=== PATIENT | female | born 1985 | race Caucasian/White ===

== ENCOUNTER 2018-08-29 12:02 | Emergency (ER) | payer SELFPAY ==
[2018-08-29 12:07] VITALS: BP 119/78; PULSE 72; RESP 16; TEMP 36.7; O2SAT 99; BMI 25.0
--- NOTE | 2018-08-29 12:24 | ED.FEMALEGU ---
HPI - Female Genitourinary <CHEPE Rowan - Last Filed: 08/29/18 21:47> General Chief complaint: Urogenital-Female Stated complaint: UTI Time Seen by Provider: 08/29/18 12:24 Source: patient Mode of arrival: ambulatory Limitations: no limitations History of Present Illness HPI Narrative: healthy 32-year-old female that is a nonsmoker here for complaint of having a urinary tract infection symptoms with dysuria and increased urinary frequency over the past week. She reports over the past couple of days she has had flank pain both on the right and the left today she reports she has left flank pain that she reports as being sharp. She states she had a fever 2 days ago. Positive p.o. intake. She denies any dysuria. She denies any vaginal discharge or bleeding. She denies any stressors or relievers of her pain. No nausea vomiting. Last bowel movement was yesterday and was unremarkable. Related Data Previous Rx's Medication Instructions Recorded levofloxacin 750 mg PO DAILY #7 tab 08/29/18 oxycodone-acetaminophen [Percocet] 1 tab PO Q4-6H PRN #6 tab 08/29/18 Allergies Allergy/AdvReac Type Severity Reaction Status Date / Time acetaminophen [From Vicodin] Allergy Intermediate Rash Verified 08/29/18 12:36 hydrocodone [From Vicodin] Allergy Intermediate Rash Verified 08/29/18 12:36 Review of Systems <CHEPE Rowan - Last Filed: 08/29/18 21:47> Constitutional Reports fever(s) Eyes Denies change in vision, Denies eye discharge, Denies irritation and Denies loss of vision ENT Ears, Nose, Mouth, and Throat: Denies change in voice, Denies neck pain and Denies sore throat Cardiovascular Denies chest pain, Denies irregular heart rhythm, Denies lightheadedness, Denies palpitations, Denies dyspnea, Denies dyspnea on exertion and Denies orthopnea Respiratory Denies cough, Denies dyspnea, Denies dyspnea on exertion and Denies wheezing Gastrointestinal Gastrointestinal: Reports abdominal pain Genitourinary Reports dysuria and Denies vaginal discharge Musculoskeletal Denies neck pain Neurologic Denies loss of vision Endocrine Denies palpitations Allergic/Immunologic Denies wheezing Exam <CHEPE Rowan - Last Filed: 08/29/18 21:47> Initial Vital Signs Initial Vital Signs: Vital Signs Temperature 98.1 F 08/29/18 12:07 Pulse Rate 72 08/29/18 12:07 Respiratory Rate 16 08/29/18 12:07 Blood Pressure 119/78 08/29/18 12:07 Pulse Oximetry 99 08/29/18 12:07 Const General: cooperative and well developed Nutritional Appearance: well nourished Orientation: alert, awake, oriented x3 and not confused HENMT Mouth: oral mucosae normal and moist mucous membranes Eyes Conjunctivae: conjunctivae normal Sclera: sclerae normal Pupils: PERRL EOM: EOM intact bilaterally Chest Chest: normal inspection of the chest Resp Effort & Inspection: normal respiratory effort, able to speak in complete sentences, no respiratory distress and no use of accessory muscles Auscultation: clear to auscultation bilaterally, no rales, no rhonchi and no wheezes Cardio Rate: regular rate Rhythm: regular rhythm Heart Sounds: no click, no gallops, no murmurs and no rubs Pulses: normal peripheral pulses GI Inspection: non-distended Palpation: soft, no hepatosplenomegaly, No guarding, No pulsatile mass and tender ( left lateral abdominal pain) Auscultation: normal bowel sounds General: CVA tenderness ( left CVA tenderness) Skin General: no rashes or lesions noted, No jaundice and No petechiae Neuro General: alert, oriented x3, gait normal and no focal motor deficits Speech: speech normal <Avinash Nelson DO - Last Filed: 08/30/18 07:10> Initial Vital Signs Initial Vital Signs: Vital Signs Temperature 98.1 F 08/29/18 12:07 Pulse Rate 72 08/29/18 12:07 Respiratory Rate 16 08/29/18 12:07 Blood Pressure 119/78 08/29/18 12:07 Pulse Oximetry 99 08/29/18 12:07 Course <CHEPE Rowan - Last Filed: 08/29/18 21:47> Orders Ordered: Discontinued Medications Hydromorphone HCl (Dilaudid) 0.5 mg IV NOW ONE Stop: 08/29/18 12:33 Last Admin: 08/29/18 12:54 Dose: 0.5 mg Sodium Chloride (Normal Saline 0.9%) 1,000 mls @ 1,000 mls/hr IV BOLUS ONE Stop: 08/29/18 13:31 Last Infusion: 08/29/18 13:53 Dose: 0 mls/hr Admin: 08/29/18 12:55 Dose: 1,000 mls/hr Ceftriaxone Sodium/Dextrose (Rocephin) 1 gm in 50 mls @ 100 mls/hr IV NOW ONE Stop: 08/29/18 15:05 Last Infusion: 08/29/18 15:31 Dose: 0 mls/hr Admin: 08/29/18 14:39 Dose: 100 mls/hr Ondansetron HCl (Zofran) 4 mg IV NOW ONE Stop: 08/29/18 12:33 Last Admin: 08/29/18 12:55 Dose: 4 mg Vital Signs - 8 hr 08/29/18 15:31 Pulse Rate 70 Respiratory Rate 13 Blood Pressure 106/60 Pulse Oximetry 99 <Avinash Nelson DO - Last Filed: 08/30/18 07:10> Orders Ordered: Discontinued Medications Hydromorphone HCl (Dilaudid) 0.5 mg IV NOW ONE Stop: 08/29/18 12:33 Last Admin: 08/29/18 12:54 Dose: 0.5 mg Sodium Chloride (Normal Saline 0.9%) 1,000 mls @ 1,000 mls/hr IV BOLUS ONE Stop: 08/29/18 13:31 Last Infusion: 08/29/18 13:53 Dose: 0 mls/hr Admin: 08/29/18 12:55 Dose: 1,000 mls/hr Ceftriaxone Sodium/Dextrose (Rocephin) 1 gm in 50 mls @ 100 mls/hr IV NOW ONE Stop: 08/29/18 15:05 Last Infusion: 08/29/18 15:31 Dose: 0 mls/hr Admin: 08/29/18 14:39 Dose: 100 mls/hr Ondansetron HCl (Zofran) 4 mg IV NOW ONE Stop: 08/29/18 12:33 Last Admin: 08/29/18 12:55 Dose: 4 mg Vital Signs - 8 hr 08/29/18 15:31 Pulse Rate 70 Respiratory Rate 13 Blood Pressure 106/60 Pulse Oximetry 99 MDM - Female Genitourinary <CHEPE Rowan - Last Filed: 08/29/18 21:47> Lab Data Result diagrams: 08/29/18 13:00 08/29/18 13:00 Lab Results 08/29/18 08/29/18 08/29/18 Range/Units 12:32 13:00 13:00 WBC 9.1 (4.5-11.0) X10^3/uL RBC 4.09 (4.0-5.2) X10^6/uL Hgb 12.4 (12.0-16.0) g/dL Hct 36.0 (36-46) % MCV 88.0 (80-100) fL MCH 30.4 (26-34) PG MCHC 34.5 (30-36) % RDW 13.3 (11.6-14.8) % Plt Count 238 (150-400) X10^3/uL Neut % (Auto) 86.1 H (50-75) % Lymph % (Auto) 7.5 L (25-40) % [place] % (Auto) 6.0 (3-14) % Eos % (Auto) 0.1 L (2-4) % Baso % (Auto) 0.3 (0-2) % Neut # (Auto) 7900 H (1728-9926) /uL Sodium 142 (137-145) mmol/L Potassium 3.9 (3.4-5.1) mmol/L Chloride 105 (98-107) mmol/L Carbon Dioxide 23 (22-32) mmol/L BUN 10 (7-17) mg/dL Creatinine 0.80 (0.52-1.04) mg/dL Estimated GFR > 60.0 (>60) mL/min BUN/Creatinine Ratio 12.5 (6-22) Glucose 88 (70-100) mg/dL Calcium 9.0 (8.4-10.2) mg/dL Total Bilirubin 0.5 (0.2-1.3) mg/dL AST 21 (14-36) IU/L ALT 28 (9-52) IU/L Alkaline Phosphatase 51 (38-126) U/L Total Protein 7.5 (6.3-8.2) g/dL Albumin 4.5 (3.5-5.0) g/dL Globulin 3.0 (1.7-4.1) g/dL Albumin/Globulin Ratio 1.5 (1.0-2.8) Lipase 33 (23-300) U/L Urine RBC 30-100/hpf H (0-5/HPF) Urine WBC 30-100/hpf H (0-5/HPF) Ur Squamous Epith Cells 10-30 /hpf H Urine Bacteria None seen (None) Ur Culture Indicated? Cult not indicated Micro UA Comment Not Reportable Point of Care Testing Test Results Negative Urine Dip Bedside Urine Glucose Negative Bedside Urine Bilirubin - Negative Bedside Urine Ketone + 15 Urine Specific [place] 1.020 Bedside Urine Occult Blood +++ Bedside Urine pH 6.0 Bedside Urine Protein + 30 Bedside Urine Urobilinogen - Negative Bedside Urine Nitrite + Positive Bedside Urine Leukocytes +++ [address] scan - abdomen: Radiologist's impression: [address] [address] [address] Scan Report Signed Patient: Yael Real#: [id number] : 1985Acct:[id number] Age/Sex: 32 / FDate of Service: 08/29/18 Loc: ED Accession Number: [id number] Procedure: CT abdomen pelvis w con Ordering Provider: Julio Londono PROCEDURE: CT ABDOMEN PELVIS W CON INDICATIONS: left flank and left abdomen pain TECHNIQUE: After the administration of intravenous contrast, 5 mm thick sections acquired from the diaphragm to the symphysis. 5 mm coronal and sagittal reformats were acquired. For radiation dose reduction, the following was used: automated exposure control, adjustment of mA and/or kV according to patient size. COMPARISON: None. FINDINGS: Image quality: Excellent. ABDOMEN: Lung bases: Lung bases are clear. Heart size is normal. Solid organs: Liver is normal in size and enhancement. Gallbladder is unremarkable. Biliary system is non dilated. Pancreas enhances normally. Spleen is normal in size and enhancement. No adrenal nodules. Kidneys demonstrate normal size and enhancement, without hydronephrosis. Peritoneum and bowel: Bowel loops demonstrate normal wall thickness and caliber. No free air. Trace dependent pelvic fluid, likely physiologic Nodes and vessels: No retroperitoneal or mesenteric adenopathy by size criteria. Aorta and inferior vena cava are normal in size. Miscellaneous: No ventral hernias. PELVIS: Genitourinary: Bladder wall thickness is normal. There is an irregular enhancing low attenuation focus within the right ovary measuring 19 mm. Miscellaneous: No inguinal hernias or adenopathy. Bones: No suspicious bony lesions. No vertebral body compression fractures. IMPRESSION: 1. Enhancing right ovarian focus likely involuting hemorrhagic cyst. Dictated by: Norma Hughes M.D. on 08/29/2018 at 14:12 Approved by: Norma Hughes M.D. on 08/29/2018 at 14:16 [facility] Narrative Medical decision making narrative: CBC was obtained and was negative for any acute findings. Chemistry panel was obtained was negative for any acute findings. Urinalysis indicates urinary tract infection. CT of the abdomen was obtained and it does shows findings consistent with right ovarian hemorrhagic cyst. No kidney stones were seen. No other acute findings were seen on the CT. Signs and symptoms presents as urinary tract infection with pyelonephritis. she was given Rocephin in the emergency room. She is placed on Levaquin p.o.. Follow up with primary care provider the next couple days for further evaluation of pyelonephritis and also for ovarian cyst. Mwej-vic-eoedbdg Tylenol or Motrin as needed for discomfort. Small amount of Percocet as prescribed for breakthrough pain. Plenty of fluids. For any worsening symptoms return to the emergency room. <Avinash Nelson DO - Last Filed: 08/30/18 07:10> Lab Data Lab Results 08/29/18 08/29/18 08/29/18 Range/Units 12:32 13:00 13:00 WBC 9.1 (4.5-11.0) X10^3/uL RBC 4.09 (4.0-5.2) X10^6/uL Hgb 12.4 (12.0-16.0) g/dL Hct 36.0 (36-46) % MCV 88.0 (80-100) fL MCH 30.4 (26-34) PG MCHC 34.5 (30-36) % RDW 13.3 (11.6-14.8) % Plt Count 238 (150-400) X10^3/uL Neut % (Auto) 86.1 H (50-75) % Lymph % (Auto) 7.5 L (25-40) % [place] % (Auto) 6.0 (3-14) % Eos % (Auto) 0.1 L (2-4) % Baso % (Auto) 0.3 (0-2) % Neut # (Auto) 7900 H (1757-2966) /uL Sodium 142 (137-145) mmol/L Potassium 3.9 (3.4-5.1) mmol/L Chloride 105 (98-107) mmol/L Carbon Dioxide 23 (22-32) mmol/L BUN 10 (7-17) mg/dL Creatinine 0.80 (0.52-1.04) mg/dL Estimated GFR > 60.0 (>60) mL/min BUN/Creatinine Ratio 12.5 (6-22) Glucose 88 (70-100) mg/dL Calcium 9.0 (8.4-10.2) mg/dL Total Bilirubin 0.5 (0.2-1.3) mg/dL AST 21 (14-36) IU/L ALT 28 (9-52) IU/L Alkaline Phosphatase 51 (38-126) U/L Total Protein 7.5 (6.3-8.2) g/dL Albumin 4.5 (3.5-5.0) g/dL Globulin 3.0 (1.7-4.1) g/dL Albumin/Globulin Ratio 1.5 (1.0-2.8) Lipase 33 (23-300) U/L Urine RBC 30-100/hpf H (0-5/HPF) Urine WBC 30-100/hpf H (0-5/HPF) Ur Squamous Epith Cells 10-30 /hpf H Urine Bacteria None seen (None) Ur Culture Indicated? Cult not indicated Micro UA Comment Not Reportable Point of Care Testing Test Results Negative Urine Dip Bedside Urine Glucose Negative Bedside Urine Bilirubin - Negative Bedside Urine Ketone + 15 Urine Specific [place] 1.020 Bedside Urine Occult Blood +++ Bedside Urine pH 6.0 Bedside Urine Protein + 30 Bedside Urine Urobilinogen - Negative Bedside Urine Nitrite + Positive Bedside Urine Leukocytes +++ 500 Esterase Discharge Plan Departure Patient Disposition: Home Clinical Impression: Ovarian cyst, Pyelonephritis Discharge Date/Time: 08/29/18 15:32 Interventions: ED Discharge Assessment Last Done: 08/29/18 15:31 Instructions: DI for Kidney Infection, DI for Ovarian Cyst Activity Restrictions/Additional Instructions: laboratory results indicate urinary tract infection and with starting flank pain presents as starting kidney infection. CT the abdomen shows a right ovarian cyst that is also most likely adding discomfort. UR placed on antibiotics use as directed. Use [id number] Tylenol or Motrin as needed for any discomfort. Follow up with primary care provider in the next day or 2 for re-evaluation. Plenty of fluids. Small amount of Percocet as prescribed for breakthrough cyst not covered by Tylenol or Motrin. For any worsening symptoms return to the emergency room. Prescriptions: New levofloxacin 750 mg tablet 750 mg PO DAILY Qty: 7 RF: 0 oxycodone-acetaminophen [Percocet] 5-325 mg tablet 1 tab PO Q4-6H PRN (Reason: pain) Qty: 6 RF: 0 <Avinash Nelson DO - Last Filed: 08/30/18 07:10> Cosign ED Attending Miguel Attestation: I was available for consultation during this patient's emergency department encounter
[2018-08-29 12:34] LABS: Bacteria Urine None Seen
[2018-08-29 12:48] LABS: Culture Indicated Urine Cult Not Indicated; RBC Urine 30-100/HPF (0-5/HPF); Squamous Epithelial Cell Urine 10-30 /HPF; WBC Urine 30-100/HPF (0-5/HPF)
[2018-08-29] MEDS: HYDROMORPHONE 1 MG INJ 0.5 MG IV (12:54)
[2018-08-29] MEDS: ONDANSETRON 4 MG/2 ML INJ IV (12:55)
[2018-08-29] MEDS: SODIUM CHLORIDE 0.9% 1,000 ML 1000 ML IV (12:55)
[2018-08-29 13:19] LABS: Add Manual Diff / Slide Review NO; Basophils Percent Auto 0.3 % (0-2); Eosinophils Percent Auto 0.1 % (2-4); Hemoglobin 12.4 g/dL (12.0-16.0); Lymphocytes Percent Auto 7.5 % (25-40); Mean Corpuscular HGB Conc 34.5 % (30-36); Mean Corpuscular Hemoglobin 30.4 PG (26-34); Neutrophils Absolute Auto 7900 /uL (3000-5900); Neutrophils Percent Auto 86.1 % (50-75); Platelet Count 238 X10^3/uL (150-400); Red Blood Cell Count 4.09 X10^6/uL (4.0-5.2); Red Cell Distribution Width 13.3 % (11.6-14.8); White Blood Cell Count 9.1 X10^3/uL (4.5-11.0)
--- NOTE | 2018-08-29 13:27 | DI.CT.S_ITS ---
PROCEDURE: CT ABDOMEN PELVIS W CON INDICATIONS: left flank and left abdomen pain TECHNIQUE: After the administration of intravenous contrast, 5 mm thick sections acquired from the diaphragm to the symphysis. 5 mm coronal and sagittal reformats were acquired. For radiation dose reduction, the following was used: automated exposure control, adjustment of mA and/or kV according to patient size. COMPARISON: None. FINDINGS: Image quality: Excellent. ABDOMEN: Lung bases: Lung bases are clear. Heart size is normal. Solid organs: Liver is normal in size and enhancement. Gallbladder is unremarkable. Biliary system is non dilated. Pancreas enhances normally. Spleen is normal in size and enhancement. No adrenal nodules. Kidneys demonstrate normal size and enhancement, without hydronephrosis. Peritoneum and bowel: Bowel loops demonstrate normal wall thickness and caliber. No free air. Trace dependent pelvic fluid, likely physiologic Nodes and vessels: No retroperitoneal or mesenteric adenopathy by size criteria. Aorta and inferior vena cava are normal in size. Miscellaneous: No ventral hernias. PELVIS: Genitourinary: Bladder wall thickness is normal. There is an irregular enhancing low attenuation focus within the right ovary measuring 19 mm. Miscellaneous: No inguinal hernias or adenopathy. Bones: No suspicious bony lesions. No vertebral body compression fractures. IMPRESSION: 1. Enhancing right ovarian focus likely involuting hemorrhagic cyst. Dictated by: Norma Hughes M.D. on 08/29/2018 at 14:12 Approved by: Norma Hughes M.D. on 08/29/2018 at 14:16
[2018-08-29 13:38] LABS: Alanine Aminotransferase 28 IU/L (9-52); Albumin 4.5 g/dL (3.5-5.0); Albumin Globulin Ratio 1.5 (1.0-2.8); Alkaline Phosphatase 51 U/L (38-126); Aspartate Aminotransferase 21 IU/L (14-36); BUN Creatinine Ratio 12.5 (6-22); Bilirubin Total 0.5 mg/dL (0.2-1.3); Blood Urea Nitrogen 10 mg/dL (7-17); Carbon Dioxide 23 mmol/L (22-32); Chloride 105 mmol/L (98-107); Estimated Glomerular Filt Rate > 60.0 mL/min (>60); Glucose 88 mg/dL (70-100); HEMOLYSIS < 15 (0-50); Lipase 33 U/L (23-300); Potassium 3.9 mmol/L (3.4-5.1); Sodium 142 mmol/L (137-145); Total Protein 7.5 g/dL (6.3-8.2)
[2018-08-29] MEDS: CEFTRIAXONE 1 GM/50 ML FROZ.PIGGY IV (14:39)
[2018-08-29 15:31] VITALS: BP 106/60; PULSE 70; RESP 13; O2SAT 99
== END 2018-08-29 15:32 | disposition home or self-care (01) ==
PROVIDERS: Emergency Medicine; Emergency Provider Nurse Practitioner Family
DX: N83.201 Unspecified ovarian cyst, right side (principal); N12 Tubulo-interstitial nephritis, not specified as acute or chronic
CPT/HCPCS: 36591; 74177; 80053; 81003; 81015; 81025; 83690; 85025; 96361; 96365; 96375; 99283; 99285; J1170; J2405; Q9967

== ENCOUNTER → 2020-03-13 12:16 | Outpatient (ROUT) | payer OTHER, MEDICAID, SELFPAY | PROVIDERS: Visit Provider Nurse Practitioner Obstetrics & Gynecology | DX: Z34.90 Encounter for supervision of normal pregnancy, unspecified, unspecified trimester (principal); Z36.85 Encounter for antenatal screening for Streptococcus B; Z3A.36 36 weeks gestation of pregnancy | CPT/HCPCS: 87081 ==

== ENCOUNTER → 2020-03-30 10:00 | Outpatient (CLI) | payer OTHER, MEDICAID, SELFPAY ==
[2020-03-31 23:19] LABS: COVID19 Sendout Not Detected (Not Detect)
== END ==
PROVIDERS: Visit Provider Physician Assistant
DX: Z01.818 Encounter for other preprocedural examination (principal)
CPT/HCPCS: 87635

== ENCOUNTER 2020-04-01 07:24 | Inpatient (IN) | payer OTHER, MEDICAID, SELFPAY ==
--- NOTE | 2020-04-01 07:34 | P.HPOB_ITS ---
OB HPI Date/Time Date of admission: 04/01/20 Date Patient Seen: 04/01/20 Time Patient Seen: 07:30 History of Present Condition Chief complaint: OBSERVATION : 6 Para: 3 Estimated Date of Delivery: 04/08/20 Estimated Gestational Age (weeks): 39 Narrative: Lori Real is a 34 year old female @39 weeks based on 7wk US, presenting for elective IOL. Has a hx of rapid labors, [place] [id number], lives remotely from hospital. Uncomplicated PN care w/ CNM. Desires low intervention . FOB present and supportive. Indications Indication for induction OB: maternal distance History of Present care: good care Dating criteria: based on 1st trimester US only Ultrasounds: normal mid trimester US Obstetrical complications: other (anemia) Preadmission Labs Blood type: O (+) positive -: Antibody screen: negative, Cystic fibrosis screen: negative, GBS status: n egative, HBsAG: negative, HIV: negative and RPR/VDLR: negative -: Chlamydia screen: not detected and Gonorrhea screen: not detected -: Rubella: immune HCT: 31.3 HCAB: negative PAP: Normal Quad screen: Normal 1 hr GTT: 108 3 hr GTT: 2 hr (118) Fasting blood glucose: 82 Narrative: 2hr gtt-WNL Prior (ies) History: G1-SAB@6wks G2-NSVB@38wks, 4hr, 7#6oz, male G3-SAB@6wks G4-NSVB@38wks, 5hr, 5#6oz, male G5-NSVB@41wks, 6hrs, 6#50z, male Evaluation Evaluation Baseline heart rate: 135 Variability: Moderate (11-25) monitor accelerations: Present monitor decelerations: Absent Contraction Frequency (minutes): 0 Category of Tracing: I Cervical dilation (cm): 4 Cervical effacement (%): 70 station: -2 [facility] Surgical History (Updated 04/01/20 @ 07:51 by Robina Segura CNM) S/P tendon repair (Acute) Social History Smoking Status: Former smoker Meds Home Medications and Allergies Home Medications Medication Instructions Recorded Confirmed Type azithromycin 250 mg tablet See Rx Instructions PO .COMPLEX #6 08/02/19 04/01/20 Rx tab Allergies Allergy/AdvReac Type Severity Reaction Status Date / Time acetaminophen [From Vicodin] Allergy Intermediate Rash Verified 08/02/19 11:34 hydrocodone [From Vicodin] Allergy Intermediate Rash Verified 08/02/19 11:34 Review of Systems Review of Systems ROS: Yes All systems reviewed with the patient and are negative except as otherwise documented Exam Vital Signs (past 8 hours): BP-111/64, HR-75bpm, T-36.3C Temporal Objective Labs Result Diagrams: 04/01/20 08:00 Assessment and Plan Assessment and Plan Assessment and Plan narrative: Admit, routine orders. Pitocin per protocol, then AROM once contractions are regular. Labor suppoert PRN. Reassess in 4-6 hours or sooner, PRN. notified of patient admit status and POC. Time Spent with Patient Total time spent with greater than 50% in coordination of care (as documented) at patient's floor/unit and/or counseling patient:: 15-24 minutes
[2020-04-01 08:16] LABS: Add Manual Diff / Slide Review NO; Basophils Absolute Auto 0 /uL (0-100); Basophils Percent Auto 0.3 % (0-2); Eosinophils Absolute Auto 100 /uL (0-450); Eosinophils Percent Auto 0.8 % (2-4); Hematocrit 31.1 % (36-46); Hemoglobin 10.8 g/dL (12.0-16.0); Lymphocytes Absolute Auto 1300 /uL (1100-4500); Lymphocytes Percent Auto 17.9 % (25-40); Mean Corpuscular HGB Conc 34.6 % (30-36); Mean Corpuscular Hemoglobin 29.8 PG (26-34); Monocytes Absolute Auto 600 /uL (0-900); Monocytes Percent Auto 7.7 % (3-14); Neutrophils Absolute Auto 5500 /uL (1500-7000); Neutrophils Percent Auto 73.3 % (50-75); Platelet Count 217 X10^3/uL (150-400); Red Blood Cell Count 3.61 X10^6/uL (4.0-5.2); Red Cell Distribution Width 16.9 % (11.6-14.8); White Blood Cell Count 7.5 X10^3/uL (4.5-11.0)
[2020-04-01] MEDS: OXYTOCIN PREMIX 30 UNIT/500 ML PLAST..BAG IV (08:22)
[2020-04-01] MEDS: LACTATED RINGERS 1,000 ML 100 ML IV ×2 (08:22→16:18)
[2020-04-01 08:50] VITALS: BP 111/64
--- NOTE | 2020-04-01 13:19 | PM.OBPNLAB ---
Date/Time Date Patient Seen: 04/01/20 Time Patient Seen: 13:00 Pain Control Pain control: tolerating well Comments: Patient denies pain Pelvic Exam Dilation (cm): 4 Effacement (%): 70 station: -2 Amniotic membrane status: Intact Contractions Date/Time contractions began: 0800 Monitor mode: External Pitocin rate (mU/min): 15 Contraction frequency (min): 3 Contraction duration (min): 1 Contraction pattern: Regular Contraction phase: Resting Contraction intensity: Mild Status status: Category l Heart Rate Baseline: 135 Monitor Accelerations: Present Monitor Decelerations: Absent Monitor Variability: Moderate Assessment and Plan Assessment: induction ongoing Plan: continuous present management Comments: Counseled patient on minimal cervical change, expected w/ mild uterine contractions. Offered AROM for labor augmentation, patient declines. Continue pitocin titration to adequate ctx pattern. RN to notify CNM @ 30mu/min. Encourage frequent position changes (Q30 minutes). Reassess in 4 hours or sooner, PRN.
--- NOTE | 2020-04-01 15:28 | P.PCNOB_ITS ---
Events: Labor Induction Labor & Delivery Delivery date: 04/01/20 Intrapartal events: Precipitous Labor < 3 hours Cervical ripening method: none Induction method: per pitocin protocol Delivery monitor: external FHT and external uterine Route of delivery: L&D Laceration Description: None Estimated blood loss (mL): 600 Anesthesia type: None Narrative: CNM called to room for patient report of sudden onset strong contractions w/ SROM upon waking from nap. Pitocin was stopped prior to my arrival. Fluid clear. Labor support and coaching provided, followed by spontaneous urge to push and patient was presumed to be complete at that time. NSVB of a vigorous baby boy in KENNETH position was sommersaulted through a single tight NC w/ easy delivery fo the shoulders. Collins lifted to maternal abdomen for drying and skin to skin. Pitocin was opened to 900mL/hr for brisk bleeding prior to placental detachment. After 2 minutes, the cord was double clamped by CNM and cut by FOB. Hospital cord blood sample was collected. Gentle cord traction and single maternal push led to spontaneous, Schultze delivery of an apparently intact placenta, membranes and 3VC. Fundus immediately firm and bleeding minimal. Vagina and perineum inspected and intact. QBL 600mL. Both mother and baby stable and skin to skin as I left the room. Collins Baby 1: gender: Male Presentation: vertex position: Right Occiput Anterior cord vessel description: Nuchal Cord score (1 min): 8 score (5 min): 10 Plan for aftercare: Routine PP orders. Anticipate d/c to home tomorrow.
[2020-04-01] MEDS: OXYTOCIN 10 UNIT/ML VIAL 20 UNIT (16:19)
[2020-04-01] MEDS: KETOROLAC 30 MG/ML VIAL IV ×2 (16:23→22:12)
[2020-04-01 22:12] VITALS: TEMP 36.9
--- NOTE | 2020-04-02 08:56 | P.DS_ITS ---
Discharge Providers Provider Date of admission: 04/01/20 07:24 Discharge Date: 04/02/20 Primary care physician: Imelda Consults: 04/02/20 15:24 Consult to Warehouse Stock Clerk Routine Comment: Discharge provider: Robina Segura CNM Summary Hospital Course Date Patient Seen: 04/02/20 Time Patient Seen: 09:00 Procedures: Patient sitting up in bed, holding her son, eager for d/c to home. breastfed well all night long. Voiding and ambulating independently. Minimal VB, no clots. Denies pain. Tolerating general diet. FOB present and supportive overnight. Peripartum Data Infant Delivery Method: Natural Vaginal Laceration description: None complications: none Sidney 1: Gender: Male Disposition of : home Discharge Diagnosis (1) Encounter for full-term uncomplicated delivery: Status: Acute Problem Details: Routine course Status at Discharge Cognitive/behavioral status at discharge: oriented Functional status at discharge: independent ambulation Overall status at discharge: patient is progressing back to baseline Time Spent with Patient Time attestation: Total time spent providing and/or coordinating discharge services: Objective Labs Result Diagrams: 04/01/20 08:00 Labs: Laboratory Results - last 24 hr 04/01/20 08:00 Blood Type O Positive Antibody Screen Negative Exam Vital Signs (past 8 hours): BP 113/76, HR83, RR18, T98.1F Temporal Bimanual Exam- Vagina & Uterus: uterus non-tender and uterus enlarged (U-1, appropriate for ) Other: Vaginal bleeding minimal, no clots. Perineum intact. Discharge Plan Discharge Plan Patient Disposition: Home Discharge orders & Medications Prescriptions: New acetaminophen 325 mg Tablet 650 mg PO Q6HR PRN (Reason: Pain, Mild (1-3)) 14 Days Qty: 60 RF: 3 ibuprofen 600 mg Tablet 600 mg PO Q6HR PRN (Reason: Pain, Mild (1-3)) 14 Days Qty: 60 RF: 3 Discontinued azithromycin 250 mg tablet See Rx Instructions PO .COMPLEX Qty: 6 RF: 0 Diet/Activity/Treatments Diet: Diet as Tolerated and Regular Activity: pelvic rest x 6 weeks Skin/Wound/Dressing Care Report to your healthcare provider any signs of infection, such as:: chills, f ever, increased pain, unusual drainage and unusual redness Visit Report/Discharge Packet Instructions: DI for Depression
[2020-04-02 09:13] VITALS: BP 113/76; PULSE 83; RESP 18; TEMP 36.7
== END 2020-04-02 10:41 | disposition home or self-care (01) | DRG 560 ==
PROVIDERS: Admitting Provider Nurse Practitioner Obstetrics & Gynecology; Referring Provider Nurse Practitioner Obstetrics & Gynecology; Visit Provider Nurse Practitioner Obstetrics & Gynecology
DX: O69.1XX0 Labor and delivery complicated by cord around neck, with compression, not applicable or unspecified (principal); Z3A.39 39 weeks gestation of pregnancy; Z37.0 Single live birth; O62.3 Precipitate labor; Z01.818 Encounter for other preprocedural examination
CPT/HCPCS: 36415; 59050; 85025; 86850; 86900; 86901; 87635; G0379; J1885; J2590

== ENCOUNTER → 2021-04-07 13:42 | Outpatient (CLI) | payer OTHER, MEDICAID, SELFPAY ==
[2021-04-07 21:36] LABS: COVID19 - ORCAS (NP or Nasal) Negative (Negative)
== END ==
PROVIDERS: PCP Family Medicine; Visit Provider Family Medicine
DX: Z20.822 Contact with and (suspected) exposure to COVID-19 (principal)
CPT/HCPCS: U0003

== ENCOUNTER → 2021-08-11 11:16 | Outpatient (CLI) | payer OTHER, MEDICAID, SELFPAY ==
[2021-08-11 19:09] LABS: Appearance Urine UA CLEAR; Bilirubin Urine UA NEGATIVE (NEGATIVE); Color Urine UA YELLOW; Glucose Urine UA NEGATIVE (Negative); Ketones Urine UA NEGATIVE (NEGATIVE); Leukocyte Esterase Urine UA NEGATIVE (NEGATIVE); Nitrite Urine UA NEGATIVE (Negative); Occult Blood Urine UA TRACE-INTACT (Negative); Protein Urine UA NEGATIVE (Negative); Urobilinogen Urine UA 0.2 E.U./dL (0.2)
[2021-08-11 19:22] LABS: pH Urine UA 5.5 (4.5-8.0)
[2021-08-11 19:24] LABS: RBC Urine 1-5/HPF (0-5/HPF); WBC Urine None Seen (0-5/HPF)
[2021-08-11 19:25] LABS: Bacteria Urine Occasional (0-1); Culture Indicated Urine Cult Not Indicated; Squamous Epithelial Cell Urine 1-5 /HPF (0-5/HPF)
[2021-08-11 19:44] LABS: TSH w/ Reflex to FT4 0.57 uIU/mL (0.47-4.68)
== END ==
PROVIDERS: Family Medicine; PCP Family Medicine; Visit Provider Physician Assistant Medical
DX: O99.345 Other mental disorders complicating the puerperium (principal); F53.0 Postpartum depression; G47.00 Insomnia, unspecified; N39.0 Urinary tract infection, site not specified
CPT/HCPCS: 81001; 84443

== ENCOUNTER → 2022-04-03 09:28 | Outpatient (CLI) | payer OTHER, MEDICAID, SELFPAY ==
[2022-04-03 18:44] LABS: Add Manual Diff / Slide Review NO; Basophils Absolute Auto 0 /uL (0-100); Basophils Percent Auto 0.6 % (0-2); Eosinophils Absolute Auto 100 /uL (0-450); Eosinophils Percent Auto 1.9 % (2-4); Hematocrit 37.5 % (36-46); Hemoglobin 13.2 g/dL (12.0-16.0); Lymphocytes Absolute Auto 900 /uL (1100-4500); Lymphocytes Percent Auto 24.8 % (25-40); Mean Corpuscular HGB Conc 35.1 % (30-36); Mean Corpuscular Hemoglobin 30.5 PG (26-34); Mean Corpuscular Volume 86.8 fL (80-100); Monocytes Absolute Auto 200 /uL (0-900); Monocytes Percent Auto 6.7 % (3-14); Neutrophils Absolute Auto 2400 /uL (1500-7000); Platelet Count 243 X10^3/uL (150-400); Red Blood Cell Count 4.32 X10^6/uL (4.0-5.2); Red Cell Distribution Width 13.5 % (11.6-14.8); White Blood Cell Count 3.7 X10^3/uL (4.5-11.0)
[2022-04-03 19:03] LABS: Alanine Aminotransferase 21 IU/L (<35); Albumin 4.4 g/dL (3.5-5.0); Albumin Globulin Ratio 1.5 (1.0-2.8); Alkaline Phosphatase 52 U/L (38-126); Aspartate Aminotransferase 25 IU/L (14-36); BUN Creatinine Ratio 17.3 (6-22); Bilirubin Total 0.4 mg/dL (0.2-1.3); Blood Urea Nitrogen 13 mg/dL (7-17); Calcium 8.8 mg/dL (8.4-10.2); Carbon Dioxide 24 mmol/L (22-32); Chloride 108 mmol/L (98-107); Estimated Glomerular Filt Rate > 60 mL/min (>60); Globulin 2.9 g/dL (1.7-4.1); Glucose 100 mg/dL (70-100); HEMOLYSIS < 15 (0-50); Potassium 4.2 mmol/L (3.4-5.1); Sodium 140 mmol/L (137-145); Total Protein 7.3 g/dL (6.3-8.2)
[2022-04-03 19:26] LABS: Erythrocyte Sedimentation Rate 6 MM/HR (0-20)
[2022-04-03 19:29] LABS: TSH w/ Reflex to FT4 1.17 uIU/mL (0.47-4.68)
== END ==
PROVIDERS: PCP Physician Assistant; Visit Provider Physician Assistant
DX: F41.9 Anxiety disorder, unspecified (principal); G43.909 Migraine, unspecified, not intractable, without status migrainosus; Z86.2 Personal history of diseases of the blood and blood-forming organs and certain disorders involving the immune mechanism
CPT/HCPCS: 80053; 84443; 85025; 85651

== ENCOUNTER → 2022-05-22 08:51 | Outpatient (CLI) | payer OTHER, MEDICAID, SELFPAY ==
[2022-05-22 19:09] LABS: Add Manual Diff / Slide Review NO; Basophils Absolute Auto 0 /uL (0-100); Basophils Percent Auto 0.4 % (0-2); Eosinophils Absolute Auto 200 /uL (0-450); Eosinophils Percent Auto 4.9 % (2-4); Hematocrit 37.3 % (36-46); Hemoglobin 12.8 g/dL (12.0-16.0); Lymphocytes Absolute Auto 1300 /uL (1100-4500); Lymphocytes Percent Auto 29.7 % (25-40); Mean Corpuscular HGB Conc 34.3 % (30-36); Mean Corpuscular Hemoglobin 30.1 PG (26-34); Mean Corpuscular Volume 87.8 fL (80-100); Monocytes Absolute Auto 300 /uL (0-900); Monocytes Percent Auto 7.9 % (3-14); Neutrophils Absolute Auto 2500 /uL (1500-7000); Neutrophils Percent Auto 57.1 % (50-75); Platelet Count 242 X10^3/uL (150-400); Red Blood Cell Count 4.24 X10^6/uL (4.0-5.2); Red Cell Distribution Width 13.6 % (11.6-14.8); White Blood Cell Count 4.4 X10^3/uL (4.5-11.0)
== END ==
PROVIDERS: PCP Physician Assistant; Visit Provider Physician Assistant
DX: R79.9 Abnormal finding of blood chemistry, unspecified (principal)
CPT/HCPCS: 85025

== ENCOUNTER → 2023-04-20 10:44 | Outpatient (CLI) | payer OTHER, MEDICAID, SELFPAY ==
[2023-04-20 19:15] LABS: Alanine Aminotransferase 22 IU/L (<35); Albumin 4.6 g/dL (3.5-5.0); Albumin Globulin Ratio 1.4 (1.0-2.8); Alkaline Phosphatase 53 U/L (38-126); Aspartate Aminotransferase 31 IU/L (14-36); BUN Creatinine Ratio 16.3 (6-22); Bilirubin Total 0.4 mg/dL (0.2-1.3); Blood Urea Nitrogen 13 mg/dL (7-17); C-Reactive Protein Quant < 0.5 mg/dL (<1.0); Calcium 9.2 mg/dL (8.4-10.2); Carbon Dioxide 28 mmol/L (22-32); Chloride 103 mmol/L (98-107); Estimated Glomerular Filt Rate > 60 mL/min (>60); Globulin 3.3 g/dL (1.7-4.1); Glucose 89 mg/dL (70-100); HEMOLYSIS < 15 (0-50); Hematocrit 37.1 % (36-46); Mean Corpuscular Hemoglobin 29.7 PG (26-34); Mean Corpuscular Volume 84.8 fL (80-100); Platelet Count 277 X10^3/uL (150-400); Potassium 4.1 mmol/L (3.4-5.1); Red Blood Cell Count 4.37 X10^6/uL (4.0-5.2); Red Cell Distribution Width 13.1 % (11.6-14.8); Sodium 138 mmol/L (137-145); Total Protein 7.9 g/dL (6.3-8.2)
[2023-04-20 19:16] LABS: Rheumatoid Factor < 8.6 IU/mL (<12.0)
[2023-04-20 19:34] LABS: Neutrophils Absolute Manual 2200 /uL (3000-5900); RBC Morphology Normal Morphology; Total Cells Counted 100
[2023-04-20 19:59] LABS: Erythrocyte Sedimentation Rate 8 MM/HR (0-20)
[2023-04-22 23:13] LABS: CCP Antibodies IgG/IgA 3 units (0-19)
[2023-04-24 14:48] LABS: ANA Screen, IFA Negative (.)
[2023-04-28 18:17] LABS: HLA B27 Negative (.)
== END ==
PROVIDERS: PCP Physician Assistant; Visit Provider Physician Assistant
DX: L40.9 Psoriasis, unspecified (principal); M25.40 Effusion, unspecified joint; M25.50 Pain in unspecified joint; R79.9 Abnormal finding of blood chemistry, unspecified
CPT/HCPCS: 80053; 81374; 84443; 85025; 85651; 86038; 86140; 86200; 86430